=== PATIENT | female | born 1990 | race Caucasian/White ===

== ENCOUNTER 2019-10-14 16:23 | Observation (INO) | payer OTHER ==
[~2019-10-14] VITALS: Ht 162.6 cm; Wt 115.7 kg
--- NOTE | ~2019-10-14 | OP ---
PATIENT NAME: ALICJA BASSETT MEDICAL RECORD: [id number] :89 LOCATION:[facility].[id number] ADMISSION DATE:10/14/19 SURGEON: KAMALJIT PAUL MD DATE OF OPERATION: 10/15/2019 PREOPERATIVE DIAGNOSES: 1. Failed self removal of IUD with salad tongs. 2. History of psychiatric disorders. 3. Intrauterine mass. POSTOPERATIVE DIAGNOSES: 1. Failed self removal of IUD with salad tongs. 2. History of psychiatric disorders. 3. Intrauterine mass. PROCEDURE: 1. Exam under anesthesia. 2. Hysteroscopy. 3. Removal of IUD. SURGEON: Kamaljit Paul MD MINER[employer] INSULATION SUPERVISOR: Tesfaye Beltran. ANESTHESIOLOGIST: Dr. Gentile. ANESTHESIA: General with endotracheal intubation. FINDINGS: Superficial lacerations to the cervix and vaginal vault were encountered. The strings are inside the cervix. At the time of hysteroscopy for assessment of damage, the lining is without significant trauma. There are multiple polypoid masses identified. SPECIMEN REMOVED: Endometrial curettings. SPECIMEN DISPOSITION: Pathology. ESTIMATED BLOOD LOSS: Minimal. FLUIDS: 1 liter. URINE OUTPUT: Quantity sufficient void prior to this procedure. COMPLICATIONS: None. INDICATIONS: The patient is a 29-year-old female who lives in a assisted home. The patient has stated multiple contacts with a high risk partner for SDI. The patient was concerned after developing abdominal pain since the last encounter. The patient attempted to remove the IUD herself while in a bath. The patient presented to the Emergency Room with pain and bleeding. DESCRIPTION OF PROCEDURE: After informed consent was assured, the patient was taken to the operating room where anesthetic was obtained. The patient was examined under anesthesia with the above findings. The cervix was probed and the string was identified and the IUD removed. Hysteroscopy was performed and OPERATIVE REPORT [id number] ALICJA BASSETT reveals the above findings. Cervix has continued to be dilated to accommodate a #1 curette. This was passed gently to the fundus and then the curette withdrawn placing pressure against the lining of the uterus. Cry was obtained and samples were sent to pathology. A single tooth tenaculum, which was used to hold the cervix during this part of the procedure was removed with some bleeding noted. Ring forceps were placed over this puncture site and it will remain until the patient is transferred to [facility] and removed. Sponge, lap, and needle counts correct times 2. The patient tolerated the procedure well. TRANSINT:[id number] Voice Confirmation ID: [id number] DOCUMENT ID: [id number] KAMALJIT PAUL MD CC: [id number] DICTATION DATE: 10/15/19 1321 LINK KNITTING MACHINE OPERATOR: 10/15/19 2145 ADM IN [facility] [address] [place] [address]
[2019-10-14] MEDS ORDERED: LITHIUM CI8 MEQ/5 ML (16:29)
[2019-10-14] MEDS ORDERED: PROZAC20 MG PO (16:30)
[2019-10-14] MEDS ORDERED: XANAX XR3 MG (16:30)
[2019-10-14] MEDS ORDERED: INVEGA 3 MG ER T3 MG (16:30)
[2019-10-14 16:58] LABS: BASOPHILS 0.4 % (0-2); EOSINOPHILS 4.2 % (0-7); HEMATOCRIT 40.3 % (36.0-48.0); HEMOGLOBIN 13.2 g/dL (12-16); IMMATURE GRANULOCYTES 0.6 % (0-5); LYMPHOCYTES 37.1 % (15-50); MCH 26.9 pg (26.0-34.0); MCHC 32.8 g/dL (31.0-37.0); MCV 82.2 fL (80.0-100.0); MEAN PLATELET VOLUME 10.1 fL (7.4-10.4); MONOCYTES 7.6 % (2-11); NEUTROPHILS 50.1 % (40-80); PLATELET COUNT 249 10x3/uL (130-400); RDW 12.4 % (11.5-14.5); WBC 10.7 10x3/uL (4.8-10.8)
[2019-10-14 17:12] LABS: CARBON DIOXIDE 27.8 mmol/L (21.0-32.0); CREATININE - SERUM 1.2 mg/dL (0.6-1.3); HCG URINE NEGATIVE (NEGATIVE); POTASSIUM - SERUM 3.8 mmol/L (3.5-5.1)
[2019-10-14 17:14] LABS: BILIRUBIN NEGATIVE (NEGATIVE); GLUCOSE NEGATIVE (NEGATIVE); KETONE NEGATIVE (NEGATIVE); NITRITE NEGATIVE (NEGATIVE); UROBILINOGEN NORMAL (NORMAL)
[2019-10-14 17:18] LABS: ALBUMIN 3.9 g/dL (3.4-5.0); BILIRUBIN - TOTAL 0.18 mg/dL (0.2-1.3); PROTEIN - SERUM 7.6 g/dL (6.4-8.2); RED CELLS - URINE OCC /hpf (0-5); WHITE CELLS - URINE 0-5 /hpf (NEGATIVE)
[2019-10-14 17:20] LABS: BACTERIA MANY /hpf (NEGATIVE); EPITHELIAL CELLS 0-5 /hpf (0-5)
[2019-10-14 18:58] LABS: INR 0.97 (0.85-1.17); PROTIME 12.8 SECONDS (11.6-15.0)
[2019-10-14 18:59] LABS: APTT 32.7 SECONDS (22.8-39.4)
--- NOTE | 2019-10-14 19:03 | NUR ---
PT GIVEN WATER AND INFORMED TO FILL BLADDER FOR ULTRASOUND. PT STATES SHE JUST URINATED, PLANT HR MANAGER NOTIFIED, STATES WILL WAIT APPROX 30 MIN FOR BLADDER TO BECOME FULL.PTS CALL LIGHT WITHIN REACH, DENIES ANY NEEDS AT THIS TIME. WILL CONTINUE TO MONITOR.
--- NOTE | 2019-10-14 19:30 | NUR ---
PT GAVE VERBAL CONSENT TO SPEAK WITH HER THERAPIST, EDWINA LORENZANA FROM [facility] ABOUT HER CARE.
--- NOTE | 2019-10-14 19:38 | NUR ---
ULTRASOUND AT PT'S BEDSIDE TO DO ULTRASOUND.
--- NOTE | 2019-10-14 20:06 | NUR ---
PT AMBULATED TO RESTROOM INDEPENDENTLY.
[2019-10-14 21:45] VITALS: BP 176/107
--- NOTE | 2019-10-14 21:45 | NUR ---
PT ADMITTED TO [facility] BY DR. PAUL. PT THOUGHT HER IUD WAS COMING OUT SO SHE TOOK KITCHEN TONGS AND TRIED TO REMOVE IT HERSELF. SHE WORKED ON THIS FOR 30 MINUTES. SHE STATES SHE THOUGHT SHE COULD DO THIS BECAUSE SHE'S SEEN IN ON [facility]. SHE HAS SOME PAIN IN HER ABD AREA. SHE HAS AN IV IN HER LEFT WRIST. SHE IS GETTING NS AT 125ML/HR. SHE IS AWAKE, ALERT AND ORIENTED AND IS UP AD ZHANG IN HER ROOM. THIS PT. HAS MANY PSYC ISSUES. SHE LIVES AT A HOME CALLED "[facility]" AND GOES TO DAY TH[facility]. SHE STATES SHE DOES NOT WANT HER PARENTS TO KNOW WHY SHE IS HERE. WILL BE FOLLOWING.
--- NOTE | 2019-10-14 22:36 | NUR ---
PT HAS RECEIVED CATAPRES 0.2 MG PO FOR ELEVATED BP AND HAS HER FLAGYL RUNNING AT THIS TIME. NO C/O.
[2019-10-15] VITALS (8 sets, daily range): BP systolic 128–176; BP diastolic 74–107; Ht 162.6 cm; Wt 115.7 kg
--- NOTE | 2019-10-15 00:57 | NUR ---
lEVAQUIN 750 MG RUNNING AT THIS TIME PER DR ORDER. PT IS HAVING NO C/0 PROBLEMS AT THIS TIME.
--- NOTE | 2019-10-15 02:06 | NUR ---
PT C/O PAIN RATING IT AT 6-7. SHE WAS GIVEN 0.5 MG DILAUDID IV. SHE STATES SHE DOEN NOT NEED ANY XANAX AT THIS TIME. SHE IS RESTING QUIETLY.
--- NOTE | 2019-10-15 04:00 | NUR ---
CONSENTS SIGNED FOR PROCEDURE THAT MAY BE DONE. PT IS VERY ANXIOUS. SHE IS CALLING HER MOTHER WHO DOES NOT TALK NICE TO HER AND THIS UPSETS PT. I ASKED PT NOT TO CALL HER MOTHER IF IT UPSETS HER.
--- NOTE | 2019-10-15 08:40 | NUR ---
SEE EMAR FOR ALL MEDS ADM BY THIS RN. SEE FLOWSHEET FOR ASSESSMENT. SR UP X2, CALL LIGHT AND PHONE WITHIN REACH. PT DENIES ALL NEEDS AT THIS TIME. PT REMINDED ABOUT NPO STATUS, AND PT AGREES.
[2019-10-15] MEDS ORDERED: LITHIUM CARBON300 MG PO (08:57)
[2019-10-15] MEDS ORDERED: NORVASC2.5 MG PO (08:58)
--- NOTE | 2019-10-15 10:50 | NUR ---
PREOP SURGERY CHECKLIST COMPLETED. SCD'S PLACED. CHLORHEXADINE WIPES DONE. PT DENIES QUESTIONS AT THIS TIME. SEE EMAR FOR ALL MEDS ADM BY THIS RN.
--- NOTE | 2019-10-15 11:20 | NUR ---
PT UP TO BR, GAIT STEADY. IV SL FOR EASE UP TO BR. PT VOIDS UNMEASURED AMOUNT WITHOUT DIFFICULTY. BACK TO BED, AND IV RECONNECTED TO INFUSE 0.9 % NS AT 100 ML/HR. PT NANO WELL. SRUP X2, CALL LIGHT AND PHONE WITHIN REACH.
--- NOTE | 2019-10-15 11:50 | NUR ---
PT TO SURGERY BY BED, WITH TRANSPORTER FOR PROCEDURE BY DR. PAUL.
--- NOTE | 2019-10-15 13:15 | NUR ---
DR. PAUL CALLS TO [facility], STATES HE WILL CONTINUE ANTIBIOTICS OVERNIGHT, AND PT WILL BE ON PERCOCET AND TORADOL FOR PAIN CONTROL.
--- NOTE | 2019-10-15 14:00 | NUR ---
RECEIVED PT TO WS BY BED, POST UA, HYSTEROSCOPY, AND IUD REMOVAL BY DR. PAUL. REPORT RECEIVED FROM [facility] ROOM NURSE. SCD'S APPLIED, PT HAS IV TO LEFT FOREARM, NS AT 100 ML/HR.
--- NOTE | 2019-10-15 14:45 | NUR ---
PT UP TO BR PER SELF, PT DID NOT CALL FOR HELP, INSTRUCTED UPON RECEIVING PT. CALL LIGHT AND PHONE WITHIN REACH. PT HAS DISCONNECTED SCD'S, O2 NC, AND TOOK OFF BP CUFF, AND DISCONNECTED IV TUBING PER SELF. PT HAS VOIDED PER SELF, WITHOUT DIFFICYULTY, UNMEASURED. PERICARE DONE PER SELF. PERIPANTIES/PADS ON. BED LINENS CHANGED WHILE PT IS STANDING IN ROOM. [facility] MUG OF ICE WATER SERVED. PT DENIES SOB, DIFFICULTY BREATHING, DENIES NAUSEA. PT BACK TO BED. IV RECONNECTED TO NS TO INFUSE AT 100 ML/HR. SCD'S PLACED BACK ON. PT STATES "HE DID A REALLY GOOD JOB, I'M SO GLAD HE GOT THAT THING OUT OF ME, AND THERE'S VERY LITTLE BLEEDING". PT DENIES ALL OTHER NEEDS AT THIS TIME. O2 SAT 98 % ON ROOM AIR.
[2019-10-15 16:06] LABS: BASOPHILS 0.2 % (0-2); EOSINOPHILS 2.6 % (0-7); HEMOGLOBIN 12.5 g/dL (12-16); IMMATURE GRANULOCYTES 0.4 % (0-5); LYMPHOCYTES 22.3 % (15-50); MCH 26.7 pg (26.0-34.0); MCHC 32.1 g/dL (31.0-37.0); MCV 83.3 fL (80.0-100.0); MEAN PLATELET VOLUME 9.9 fL (7.4-10.4); MONOCYTES 7.2 % (2-11); NEUTROPHILS 67.3 % (40-80); PLATELET COUNT 230 10x3/uL (130-400); RBC 4.68 10x6/uL (4.00-5.40); RDW 12.6 % (11.5-14.5); WBC 8.4 10x3/uL (4.8-10.8)
[2019-10-15] MEDS ORDERED: LITHIUM CARBON300 MG (17:51)
--- NOTE | 2019-10-15 19:20 | NUR ---
REPORT GIVEN TO 7P SHIFT.
--- NOTE | 2019-10-15 19:30 | NUR ---
REPORT GIVEN BY LATANYA SOLORZANO
--- NOTE | 2019-10-15 20:30 | NUR ---
PT IS DOING WELL TONIGHT. SHE STATES SHE HAS NO PAIN. SHE IS UP AD ZHANG IN HER ROOM. STATES SHE IS GLAD HER PROCEDURE IS OVER. HEART SOUNDS ARE WNL LUNGS CLEAR BOWEL SOUNDS HEARD. PT HAS MANY QUESTIONS. SKIN IS WARM AND DRY AND SHE IS VOIDING WELL. IV IN THE LEFT WRIST LOOKS GOOD. NO REDNESS OR SWELLING NOTED. SHE CONT TO RECIEVE IV ANTIBIOTICS. SHE STATES SHE HAS NO VAGINAL DISCHARGE.
--- NOTE | 2019-10-15 21:30 | NUR ---
PT STATES SHE GOT A CLEAR LIQUID TRAY FOR DINNER. SHE REQUESTED A SANDWICH WHICH WAS GIVEN.
--- NOTE | 2019-10-15 22:30 | NUR ---
NO C/O. RESTING QUIETLY.
[2019-10-16] VITALS: BP 109/73
--- NOTE | 2019-10-16 | NUR ---
VS TAKEN. NO C/O FROM PT. SHE IS RESTING QUIETLY.
--- NOTE | 2019-10-16 02:00 | NUR ---
PT RESTING QUIETLY.
--- NOTE | 2019-10-16 04:00 | NUR ---
VS TAKEN. PT IS AWAKE NOW. SHE STATES HER IV HURTS. I CHECKED THE SITE AGAIN. THERE IS NO REDNESS OR SWELLING AT THE SITE. BLOOD RETURN OBTAINED. I EXPLAINED THAT IV'S HURT SOMETIME AND SHE STILL HAD IV ANTIBIOTICS TO GET. SHE WAS FINE AFTER THAT, BUT SHE WAS AFRAID THAT AN AIR BUBBLE COULD HAVE CAUSED THE PAIN.
[2019-10-16 04:10] VITALS: BP 110/68
--- NOTE | 2019-10-16 06:36 | NUR ---
PT IS RESTING QUIETLY. NO C/O
--- NOTE | 2019-10-16 08:22 | NUR ---
RECEIVED PT SITTING UP IN BED. AWAKE. AAO X 3. VSS. HRRR WITHOUT AUDIBLE MURMUR. BBS CLEAR. BS X 4. ABDOMEN SOFT/NON-DISTENDED. PT STATES "I'M HAVING A LOT OF BLEEDING". NO PERIPAD NOTED ON. PT STATES "IT'S JUST SMEARS OF BROWN STUFF WHEN I WIPE". PERIPAD ON PT TO MONITOR. PT DENIES BRIGHT RED BLEEDING OR PASSING CLOTS. NEG HOMANS' SIGN. PPP. NO EDEMA NOTED TO BLE. SL TO LEFT WRIST. SITE CLEAR. PT C/O PAIN TO PERINEUM/ABDOMINAL AREA OF "8" ON 0-10 PAIN SCALE.
--- NOTE | 2019-10-16 08:22 | NUR ---
PERCOCET 5/325 2 TABS GIVEN PO ORDERED. PT INSTRUCTED ON MED. VERBALIZES UNDERSTANDING.
[2019-10-16 08:30] VITALS: BP 134/87
--- NOTE | 2019-10-16 09:15 | NUR ---
DR PAUL VISITS WITH PT.
--- NOTE | 2019-10-16 09:30 | NUR ---
PT STATES DR PAUL WILL DISCHARGE PT HOME THIS AFTERNOON. PT STATES "I DON'T HAVE ANY CLOTHES TO WEAR". STATES "I CAME IN ONLY MY ROBE". STATES HAS NO FAMILY THAT CAN BRING PT CLOTHES. STATES "[facility]". STATES "NO ONE FROM THERE CAN BRING ME CLOTHES". STATES "I HAVE TO GET A CAB TO GET BACK THERE". STATES "I DON'T HAVE ENOUGH MONEY FOR A CAB TO GET THERE".
--- NOTE | 2019-10-16 10:11 | NUR ---
COURTNEY WITH CASE MANAGEMENT NOTIFIED OF ORDER. STATES WILL COME SEE PT AFTER LUNCH.
--- NOTE | 2019-10-16 11:35 | NUR ---
PT LYING SUPINE IN BED. WAKES UPON ENTERING ROOM. DENIES NEEDS OR C/O.
--- NOTE | 2019-10-16 12:15 | NUR ---
CASE MANAGEMENT VISITS WITH PT. [facility] HAS CLOTHING PROVIDED TO PT AND TAXI WILL BE PAID FOR BY [facility] IF THERE BY 3 PM TODAY. STATES CLEARED FOR DISCHARGE.
--- NOTE | 2019-10-16 12:25 | NUR ---
DR PAUL NOTIFIED OF FINDINGS FROM CASE MANAGEMENT. WILL PUT ORDERS IN, PT DISCHARGE NOW.
--- NOTE | 2019-10-16 12:35 | MORECARE ---
CASE MANAGEMENT DISCHARGE SUMMARY PATIENT: ALICJA BASSETT UNIT: [id number] ADM DATE: 10/14/19 AGE: 29 : [birth year] SEX: F ROOM/BED: D.1218 AUTHOR: HUGO NEWSOME PHYSICIAN: REFERRING PHYSICIAN: TRACY PAUL MD DATE OF SERVICE: 10/16/19 Discharge Plan Patient Name: ALICJA BASSETT Facility: [facility]:[place] : 1990 Planned Disposition: Home Anticipated Discharge Date: 10/16/19 Discharge Date: Expected LOS: 2 Initial Reviewer: [email or web address] Initial Review Date: 10/14/2019 Generated: 10/16/19 1:34 pm Comments DCP- Discharge Planning Updated by [email or web address]: Katie Gordon on 10/16/19 11:[address] DC PLAN: Return home today. Order received r/t patient having no clothes or money to get home. CM provided patient with paper scrubs for trip home and offered a bus ticket. She stated she just needed the number to the taxi service and once she got to [facility] they would give her money for the taxi. She denied further dc needs. Katie Gordon RN, CCM Patient Name: ALICJA BASSETT Page [id number] at 1235 All edits/amendments must be made on the electronic document DICTATION DATE: 10/16/19 1234 SKIDWAY WORKER: SERGIO 10/16/19 1234 RPT#: [id number] DC DATE: STATUS: ADM IN [facility] [address] [place] [address] END OF REPORT
--- NOTE | 2019-10-16 13:00 | NUR ---
FLAGYL 500 MG UP VIA ALARIA PUMP. PIV SITE CLEAR.
--- NOTE | 2019-10-16 13:20 | NUR ---
PT GIVEN DISCHARGE INSTRUCTIONS. VERBALIZES UNDERSTANDING OF ALL INSTRUCTIONS. COPIES GIVEN TO PT.
--- NOTE | 2019-10-16 13:30 | NUR ---
ARIANA AMEZQUITA CALLED FOR PT RIDE TO [address] [place] [address]; WHERE THEY WILL PAY FOR PT FARE. STATES WILL BE AT HOSPITAL FRONT ENTRANCE AT 2 PM.
--- NOTE | 2019-10-16 13:46 | NUR ---
YANELIS FINISHED INFUSING. PIV DC'D WITH CATHELON INTACT. PRESSURE BANDAGE TO SITE. PT UP TO DRESS.
--- NOTE | 2019-10-16 13:54 | NUR ---
DR PAUL ON UNIT. RX FOR MOBIC AND [place] GIVEN TO PT. PT DISCHARGED VIA WHEELCHAIR TO FRONT ENTRANCE TO WAIT ON [facility]AXI CAB.
[2019-10-16] MEDS ORDERED: MOBIC7.5 MG (13:55)
[2019-10-16] MEDS ORDERED: OCELLA 3 MG-0.1 EACH PO (13:57)
== END 2019-10-16 13:54 | disposition home or self-care (01) ==
LOC: D.ER 16:23 → OBSVTIME 19:41 → D.WS 19:41
PROVIDERS: Emergency Medicine; ADMIT Obstetrics & Gynecology; ATTEND Obstetrics & Gynecology
DX: S39.848A Other specified injuries of external genitals, initial encounter (principal); R10.9 Unspecified abdominal pain